=== PATIENT | male | born 1995 | race African-American/Black ===

== ENCOUNTER 2023-07-18 08:15 | Emergency (ER) | payer MEDICAID, OTHER ==
[~2023-07-18] VITALS: Ht 170.2 cm; Wt 73.0 kg
[2023-07-18] MEDS ORDERED: IBUPROFEN 400MG TABLET PO ONE (08:45)
[2023-07-18] MEDS ORDERED: ALBUTEROL (0.083%) 2.5MG/3ML NEB HHN STA (10:03)
[2023-07-18] MEDS ORDERED: IPRATROPIUM BROMIDE (0.02%) 0.5MG/2.5ML NEB HHN STA (10:03)
[2023-07-18] MEDS ORDERED: ACETAMINOPHEN WITH CODEINE 300/30MG TABLET PO ONE (10:15)
[2023-07-18] MEDS ORDERED: TOPUD PO (10:18)
[2023-07-18] MEDS ORDERED: ALBU6.7H3 INH (10:19)
[2023-07-18] MEDS ORDERED: P50 PO (10:19)
[2023-07-18 10:28] VITALS: PULSE 79; RESP 16; O2SAT 99
[2023-07-18 11:26] VITALS: BP 132/78; PULSE 78; RESP 18; TEMP 98.7
== END 2023-07-18 11:06 | disposition home or self-care (01) ==
LOC: ER 08:15
DX: M54.9 Dorsalgia, unspecified (principal); M54.2 Cervicalgia; J45.909 Unspecified asthma, uncomplicated
CPT/HCPCS: 71045; 72100; 70450; 72125; 94640; 99284; Z7610 ×3

== ENCOUNTER 2024-02-20 11:37 | Emergency (ER) | payer MEDICAID ==
[~2024-02-20] VITALS: Ht 172.7 cm; Wt 80.0 kg
[~2024-02-20 11:37] MED LIST: ALBU6.7H3 INH; P50 PO; TOPUD PO
[2024-02-20] MEDS: PREDNISONE 20MG TABLET PO STA (12:05)
[2024-02-20] MEDS ORDERED: ALBU6.7H15 INH (13:03)
[2024-02-20] MEDS ORDERED: ALBU2.5V13 NEB (13:03)
[2024-02-20] MEDS ORDERED: P50 PO (13:03)
[2024-02-20 13:12] VITALS: PULSE 88; RESP 16; O2SAT 97
[2024-02-20] MEDS: IPRATROPIUM BROMIDE (0.02%) 0.5MG/2.5ML NEB HHN STA (13:12)
[2024-02-20] MEDS: ALBUTEROL (0.083%) 2.5MG/3ML NEB HHN SCH (13:18)
[2024-02-20 14:26] VITALS: BP 128/67; PULSE 88; RESP 16; TEMP 98
== END 2024-02-20 14:33 | disposition home or self-care (01) ==
LOC: ER 11:37
DX: J45.901 Unspecified asthma with (acute) exacerbation (principal); K40.90 Unilateral inguinal hernia, without obstruction or gangrene, not specified as recurrent; Z91.013 Allergy to seafood; Z88.8 Allergy status to other drugs, medicaments and biological substances
CPT/HCPCS: 71045; 94644; 99285; J7512; Z7610 ×3

== ENCOUNTER 2024-10-10 04:03 | Emergency (ER) | payer MEDICAID ==
[~2024-10-10] VITALS: Ht 172.7 cm; Wt 80.0 kg
[~2024-10-10 04:03] MED LIST changes: +ALBU2.5V13 NEB; +ALBU6.7H15 INH
[2024-10-10 04:07] VITALS: BP 136/70; PULSE 106; TEMP 98; O2SAT 98
[2024-10-10] MEDS ORDERED: ALBU90AE INH (04:13)
[2024-10-10] MEDS: ACETAMINOPHEN 325MG TABLET PO ONE (05:35)
[2024-10-10 05:45] VITALS: RESP 16
== END 2024-10-10 06:05 ==
LOC: ER 04:03
DX: J45.901 Unspecified asthma with (acute) exacerbation (principal); N50.812 Left testicular pain; N50.811 Right testicular pain; Z79.899 Other long term (current) drug therapy; Z02.89 Encounter for other administrative examinations
CPT/HCPCS: 76870; 93976; 99284